=== PATIENT | female | born 1970 | race African-American/Black ===

== ENCOUNTER → 2017-06-14 | Outpatient (REF) | payer OTHER ==
[2017-06-14 18:51] LABS: IRON (FE) 165 UG/DL (50-170); PERCENT SATURATION 42.6 % (13.2-45.0); RHEUMATOID FACTOR QUANT < 10.0 IU/ML (0-15.0); TOTAL IRON BINDING CAPACITY 387 UG/DL (250-450)
[2017-06-14 18:54] LABS: VITAMIN B12 LEVEL 759 PG/ML (247-911)
[2017-06-17 00:10] LABS: ANTINUCLEAR ANTIBODIES DIRECT Negative (Negative); Lyme Disease IgG/IgM Antibodie <0.91 ISR (0.00-0.90); Lyme Disease IgM Ab Quantitati <0.80 index (0.00-0.79)
== END ==
LOC: M LAB REF 18:01
DX: M25.50 Pain in unspecified joint (principal); D50.9 Iron deficiency anemia, unspecified

== ENCOUNTER → 2018-01-14 | Outpatient (REF) | payer OTHER ==
[2018-01-14 13:54] LABS: FERRITIN 17 NG/ML (8-252); IRON (FE) 132 UG/DL (50-170); PERCENT SATURATION 35.2 % (13.2-45.0); RHEUMATOID FACTOR QUANT < 10.0 IU/ML (<15.0); TOTAL IRON BINDING CAPACITY 375 UG/DL (250-450)
[2018-01-15 10:37] LABS: ANTI-CHROMATIN ANTIBODIES <0.2 AI (0.0-0.9)
[2018-01-15 10:37] LABS: ANTI DOUBLE STRAND-DNA AB 1 IU/mL (0-9); RNP ANTIBODY < 0.2 AI (0.0-0.9); SMITHS ANTIBODY < 0.2 AI (0.0-0.9); SSA SJOGRENS A <0.2 AI (0.0-0.9); SSB SJOGRENS B 0.2 AI (0.0-0.9)
[2018-01-16 00:06] LABS: CYCLIC CITRULLINATED PEPTIDE 8 units (0-19)
== END ==
LOC: M LAB REF 12:53
DX: M79.7 Fibromyalgia (principal); M25.50 Pain in unspecified joint; M54.5 Low back pain; D50.9 Iron deficiency anemia, unspecified

== ENCOUNTER → 2024-11-23 | Outpatient (CLI) | payer OTHER | LOC: M PLAIMG 12:50 | PROVIDERS: ATTEND Nurse Practitioner Adult Health | DX: M54.16 Radiculopathy, lumbar region (principal) ==